=== PATIENT | female | born 1945 | race Caucasian/White ===

== ENCOUNTER → 2020-02-16 | Outpatient (CLI) | payer MEDICARE, OTHER ==
[~2020-02-16] MED LIST: ASPI-630 PO; GADOTERATE 7.5 MMOL/15ML VIAL. IVP ONE
--- NOTE | 2020-02-16 16:44 | KCIC ---
MRI Brain with and without contrast History:Pituitary adenoma resection years ago Technique: Multiplanar, multi sequential pre and postcontrast MR imaging was performed of the brain. Comparison: None available at this time Findings: There is somewhat heterogeneously enhancing mass of the sella greater on the right, also involvement of the cavernous sinuses bilaterally much greater on the right. The mass centered in the right aspect of the sella and cavernous sinus measures about 2.6 m transverse by 2.9 cm CC by 2.8 cm AP, 360 degree encasement of the right cavernous internal carotid artery although patent flow-void. Component of the small mass in the left cavernous sinus is estimated about 0.8 cm transverse by about 0.6. CC by about 1.9 cm AP. Infundibulum is deviated to the left. Mass is near the undersurfaces of the prechiasmatic optic nerves. There is no evidence of recent infarct or cytotoxic edema. Ventricular size is proportionate to the sulcal spaces, mild prominence of the supratentorial subarachnoid spaces not unexpected for the patient's age.There is no significant midline shift, intraaxial mass effect, or focal abnormal extra-axial fluid collection. There is scattered overall mild T2 and FLAIR hyperintense signal of the supratentorial parenchyma bilaterally. There is no nodular parenchymal or leptomeningeal enhancement. There is preservation of the major intracranial flow-voids at the skull base. The cerebellar tonsils are normal in location. There is no significant abnormality of the pineal gland. There is patchy minimal ethmoid air cell mucosal thickening. There is mild fluid of the right mastoid air cells.There is a nonenhancing focus of round signal change in the left subcutaneous fat of the superior left neck about 2.1 cm in size which could be a sebaceous cyst. There is also 0.8 cm focus of signal abnormality in the left frontal scalp, does not convincingly enhance, potentially complex sebaceous cyst. There has been lens surgery on the right. Impression: 1. 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 2. Mild T2 and FLAIR hyperintense signal of the supratentorial parenchyma is more commonly due to chronic microvascular ischemic disease in a patient this age. Electronically signed by: Sven Harris MD (02/16/2020 4:41 PM) [place] [id number]
== END | disposition home or self-care (01) ==
LOC: KCIC MRI 14:33
DX: I67.82 Cerebral ischemia (principal); R22.0 Localized swelling, mass and lump, head; D35.2 Benign neoplasm of pituitary gland
CPT/HCPCS: 70553; 82565; A9575